=== PATIENT | male | born 1975 | race Caucasian/White ===

== ENCOUNTER 2016-05-26 22:22 | Emergency (ER) | payer OTHER ==
[~2016-05-26 22:22] MED LIST: AFRIN15 NAS; ALEVE220 MG PO; AMIT25 PO; AMITRIPTYLINE PO; EFFEXOR XR150 MG PO; HUMALOG SC; LAMICTAL XR200 MG PO; LAMICTAL200 MG PO; LANTUS SC; PERCOCET1 TA4 PO; PRIN20 PO
== END 2016-05-26 22:50 | disposition home or self-care (01) ==
LOC: ER 22:22
DX: M54.2 Cervicalgia (principal); M79.602 Pain in left arm; M54.12 Radiculopathy, cervical region; F31.9 Bipolar disorder, unspecified; E11.9 Type 2 diabetes mellitus without complications
CPT/HCPCS: 72040; 72072; 93005; 99283

== ENCOUNTER 2016-06-14 10:21 | Emergency (ER) | payer OTHER | END 2016-06-14 11:22 | disposition home or self-care (01) | LOC: ER 10:21 | DX: M54.2 Cervicalgia (principal); E11.9 Type 2 diabetes mellitus without complications; F31.9 Bipolar disorder, unspecified; Z79.4 Long term (current) use of insulin; Z79.899 Other long term (current) drug therapy | CPT/HCPCS: 96372; 99283; J2800 ==